=== PATIENT | male | born 1995 | race Caucasian/White ===

== ENCOUNTER → 2021-08-02 | Outpatient (CLI) | payer OTHER | END | disposition home or self-care (01) | LOC: COVID19 16:52 | PROVIDERS: ATTEND Internal Medicine | DX: Z11.52 Encounter for screening for COVID-19 (principal) ==

== ENCOUNTER 2023-02-18 10:51 | Emergency (ER) | payer SELFPAY ==
[~2023-02-18] VITALS: Ht 162.5 cm; Wt 63.5 kg
[2023-02-18] MEDS ORDERED: POLYMYXIN B/TRI10 M1 OPH (11:39)
== END 2023-02-18 11:47 | disposition home or self-care (01) ==
LOC: ED 10:51
DX: H10.9 Unspecified conjunctivitis (principal)

== ENCOUNTER 2023-02-21 13:47 | Emergency (ER) | payer SELFPAY ==
[~2023-02-21] VITALS: Ht 162.5 cm; Wt 61.2 kg
[~2023-02-21 13:47] MED LIST: POLYMYXIN B/TRI10 M1 OPH
[2023-02-21] MEDS ORDERED: AMOXICILLIN500 M2 PO (18:23)
== END 2023-02-21 14:55 | disposition home or self-care (01) ==
LOC: ED 13:47
DX: J02.9 Acute pharyngitis, unspecified (principal); Z88.2 Allergy status to sulfonamides

== ENCOUNTER 2023-04-06 15:14 | Emergency (ER) | payer SELFPAY ==
[~2023-04-06] VITALS: Ht 162.5 cm; Wt 54.4 kg
[~2023-04-06 15:14] MED LIST changes: +AMOXICILLIN500 M2 PO
[2023-04-06 15:53] LABS: BASO # 0.1 10*3/uL (0.0-0.1); BASO % 1.1 % (0.0-1.0); EOS # 0.3 10*3/uL (0.0-0.4); EOS % 4.7 % (1.0-4.0); HEMATOCRIT 44.4 % (42.0-52.0); LYMPH # 1.8 10*3/uL (1.3-4.4); LYMPH % 26.5 % (27.0-41.0); MEAN CELL VOLUME 87.1 fl (80.0-94.0); MEAN CORPUSCULAR HGB 29.6 pg (27.0-31.0); MEAN PLATELET VOLUME 11.2 fl (9.6-12.3); MONO # 0.5 10*3/uL (0.1-1.0); MONO % 6.9 % (3.0-9.0); NEUT % 60.5 % (47.0-73.0); PLATELET COUNT AUTOMATED 228 10*3/uL (130-400); RED CELL DISTRI WIDTH 12.5 % (0-14.5); WHITE BLOOD COUNT 6.6 10*3/uL (4.8-10.8)
[2023-04-06 16:16] LABS: ALKALINE PHOSPHATASE 69 U/L (46-116); BUN 13 mg/dl (9-23); CHLORIDE 105 mmol/L (98-107); LIPASE 44 U/L (12-53); POTASSIUM 4.4 mmol/L (3.4-5.1); SGPT/ALT 26 U/L (10-49); TOTAL PROTEIN 7.2 gm/dL (6.0-8.0)
== END 2023-04-06 17:30 | disposition home or self-care (01) ==
LOC: ED 15:14
PROVIDERS: Emergency Medicine
DX: E86.0 Dehydration (principal); R53.1 Weakness; R11.0 Nausea; Z88.2 Allergy status to sulfonamides

== ENCOUNTER 2023-05-18 06:30 | Emergency (ER) | payer OTHER, MEDICAID ==
[~2023-05-18] VITALS: Ht 162.5 cm; Wt 63.5 kg
[2023-05-18] MEDS ORDERED: NAPROXEN500 M1 PO (07:30)
== END 2023-05-18 07:38 | disposition home or self-care (01) ==
LOC: ED 06:30
DX: S39.012A Strain of muscle, fascia and tendon of lower back, initial encounter (principal); Z88.2 Allergy status to sulfonamides; Z87.891 Personal history of nicotine dependence; X58.XXXA Exposure to other specified factors, initial encounter; Y93.89 Activity, other specified; Y92.89 Other specified places as the place of occurrence of the external cause; Y99.8 Other external cause status

== ENCOUNTER 2023-11-19 20:52 | Emergency (ER) | payer OTHER, MEDICAID ==
[~2023-11-19] VITALS: Ht 162.5 cm; Wt 59.0 kg
[~2023-11-19 20:52] MED LIST changes: +NAPROXEN500 M1 PO
[2023-11-19] MEDS ORDERED: AMOX-CLAV 875-1 EACH PO (22:12)
== END 2023-11-19 22:33 | disposition home or self-care (01) ==
LOC: ED 20:52
DX: J02.9 Acute pharyngitis, unspecified (principal); R51.9 Headache, unspecified; Z88.2 Allergy status to sulfonamides; F17.210 Nicotine dependence, cigarettes, uncomplicated

== ENCOUNTER 2024-04-30 02:24 | Emergency (ER) | payer MEDICAID ==
[~2024-04-30] VITALS: Ht 172.7 cm; Wt 70.3 kg
[~2024-04-30 02:24] MED LIST changes: +AMOX-CLAV 875-1 EACH PO
[2024-04-30] MEDS ORDERED: HYDROCODONE-AC1 EAC1 PO (03:17)
== END 2024-04-30 03:36 | disposition home or self-care (01) ==
LOC: ED 02:24
DX: S62.306A Unspecified fracture of fifth metacarpal bone, right hand, initial encounter for closed fracture (principal); Z88.2 Allergy status to sulfonamides; W22.8XXA Striking against or struck by other objects, initial encounter; Y93.89 Activity, other specified; Y92.89 Other specified places as the place of occurrence of the external cause; Y99.8 Other external cause status

== ENCOUNTER → 2024-05-08 | Outpatient (CLI) | payer MEDICAID ==
[~2024-05-08] MED LIST changes: +HYDROCODONE-AC1 EAC1 PO
== END | disposition home or self-care (01) ==
LOC: ORTHO 02:17
PROVIDERS: ATTEND Orthopaedic Surgery
DX: S62.396D Other fracture of fifth metacarpal bone, right hand, subsequent encounter for fracture with routine healing (principal); X58.XXXD Exposure to other specified factors, subsequent encounter

== ENCOUNTER → 2024-05-13 | Outpatient (CLI) | payer MEDICAID | END | disposition home or self-care (01) | LOC: ORTHO 02:49 | PROVIDERS: ATTEND Orthopaedic Surgery | DX: S62.336D Displaced fracture of neck of fifth metacarpal bone, right hand, subsequent encounter for fracture with routine healing (principal); X58.XXXD Exposure to other specified factors, subsequent encounter ==

== ENCOUNTER → 2024-05-20 | Outpatient (CLI) | payer MEDICAID | END | disposition home or self-care (01) | LOC: ORTHO 01:08 | PROVIDERS: ATTEND Orthopaedic Surgery | DX: S62.331D Displaced fracture of neck of second metacarpal bone, left hand, subsequent encounter for fracture with routine healing (principal); X58.XXXD Exposure to other specified factors, subsequent encounter ==

== ENCOUNTER 2024-08-16 22:32 | Emergency (ER) | payer MEDICAID ==
[~2024-08-16] VITALS: Ht 162.5 cm; Wt 63.5 kg
[2024-08-17] MEDS ORDERED: VIBRAMYCIN100 MG PO (00:08)
[2024-08-17] MEDS ORDERED: CEPHALEXIN500 M1 PO (00:08)
[2024-08-17] MEDS ORDERED: Doxycycline Hyclate 100 MG CAP PO ONE (00:10)
== END 2024-08-17 00:22 | disposition home or self-care (01) ==
LOC: ED 22:32
DX: L02.411 Cutaneous abscess of right axilla (principal); F17.200 Nicotine dependence, unspecified, uncomplicated; Z88.2 Allergy status to sulfonamides

== ENCOUNTER 2024-09-10 17:40 | Emergency (ER) | payer SELFPAY ==
[~2024-09-10] VITALS: Ht 162.5 cm; Wt 63.5 kg
[~2024-09-10 17:40] MED LIST changes: +CEPHALEXIN500 M1 PO; +VIBRAMYCIN100 MG PO
[2024-09-10] MEDS ORDERED: Ketorolac Tromethamine 30 MG/ML VIAL IM ONE (17:55)
[2024-09-10] MEDS ORDERED: ZANAFLEX4 MG PO (19:10)
[2024-09-10] MEDS ORDERED: NAPROSYN500 MG PO (19:10)
[2024-09-10] MEDS ORDERED: Acetaminophen/Oxycodone 5 MG/325 MG TABLET PO ONE (19:10)
== END 2024-09-10 19:25 | disposition home or self-care (01) ==
LOC: ED 17:40
DX: S39.012A Strain of muscle, fascia and tendon of lower back, initial encounter (principal); S29.012A Strain of muscle and tendon of back wall of thorax, initial encounter; Z88.2 Allergy status to sulfonamides; X50.0XXA Overexertion from strenuous movement or load, initial encounter; Y93.89 Activity, other specified; Y92.89 Other specified places as the place of occurrence of the external cause; Y99.0 Civilian activity done for income or pay

== ENCOUNTER 2024-09-20 15:01 | Emergency (ER) | payer SELFPAY ==
[~2024-09-20] VITALS: Ht 162.5 cm; Wt 63.5 kg
[~2024-09-20 15:01] MED LIST changes: +NAPROSYN500 MG PO; +ZANAFLEX4 MG PO
[2024-09-20] MEDS ORDERED: MELOXICAM15 MG PO (15:24)
[2024-09-20] MEDS ORDERED: Acetaminophen/Oxycodone 5 MG/325 MG TABLET PO ONE (15:25)
== END 2024-09-20 16:43 | disposition home or self-care (01) ==
LOC: ED 15:01
DX: S09.8XXA Other specified injuries of head, initial encounter (principal); Z88.2 Allergy status to sulfonamides; W01.198A Fall on same level from slipping, tripping and stumbling with subsequent striking against other object, initial encounter; Y93.01 Activity, walking, marching and hiking; Y92.89 Other specified places as the place of occurrence of the external cause; Y99.0 Civilian activity done for income or pay

== ENCOUNTER 2024-10-20 19:10 | Emergency (ER) | payer SELFPAY ==
[~2024-10-20] VITALS: Ht 162.5 cm; Wt 68.0 kg
[~2024-10-20 19:10] MED LIST changes: +MELOXICAM15 MG PO
[2024-10-20 19:38] LABS: BASO % 0.7 % (0.0-1.0); EOS # 0.1 10*3/uL (0.0-0.4); HEMATOCRIT 44.5 % (42.0-52.0); MEAN CELL VOLUME 88.3 fl (80.0-94.0); MEAN CORPUSCULAR HGB CONC 33.9 g/dl (33.0-37.0); MEAN PLATELET VOLUME 11.5 fl (9.6-12.3); MONO # 0.5 10*3/uL (0.1-1.0); MONO % 7.8 % (3.0-9.0); NEUT % 67.3 % (47.0-73.0); PLATELET COUNT AUTOMATED 199 10*3/uL (130-400); RED BLOOD COUNT 5.04 10*6/uL (4.50-5.90); WHITE BLOOD COUNT 5.9 10*3/uL (4.8-10.8)
[2024-10-20 19:56] LABS: BUN < 5 mg/dl (9-23); CHLORIDE 109 mmol/L (98-107); POTASSIUM 3.7 mmol/L (3.4-5.1)
[2024-10-20] MEDS ORDERED: LORazepam 1 MG TAB PO ONE (20:25)
[2024-10-21] MEDS ORDERED: METHOCARBAMOL500 M1 PO (05:13)
[2024-10-21] MEDS ORDERED: NAPROXEN250 MG PO (05:13)
== END 2024-10-20 20:34 | disposition home or self-care (01) ==
LOC: ED 19:10
PROVIDERS: Nurse Practitioner Family
DX: F41.9 Anxiety disorder, unspecified (principal); R11.0 Nausea; Z88.2 Allergy status to sulfonamides

== ENCOUNTER 2024-10-21 02:11 | Emergency (ER) | payer OTHER ==
[~2024-10-21] VITALS: Ht 170.1 cm; Wt 68.0 kg
[2024-10-21 03:11] LABS: BASO % 0.7 % (0.0-1.0); EOS # 0.1 10*3/uL (0.0-0.4); EOS % 0.9 % (1.0-4.0); HEMATOCRIT 43.8 % (42.0-52.0); MEAN CELL VOLUME 88.7 fl (80.0-94.0); MEAN CORPUSCULAR HGB 30.2 pg (27.0-31.0); MEAN PLATELET VOLUME 11.4 fl (9.6-12.3); MONO # 0.5 10*3/uL (0.1-1.0); MONO % 9.8 % (3.0-9.0); NEUT # 3.4 10*3/uL (2.3-7.9); NEUT % 63.8 % (47.0-73.0); PLATELET COUNT AUTOMATED 210 10*3/uL (130-400); RED BLOOD COUNT 4.94 10*6/uL (4.50-5.90); RED CELL DISTRI WIDTH 12.1 % (0-14.5); WHITE BLOOD COUNT 5.4 10*3/uL (4.8-10.8)
[2024-10-21] MEDS ORDERED: NAPROXEN250 MG PO (05:13)
[2024-10-21] MEDS ORDERED: METHOCARBAMOL500 M1 PO (05:13)
== END 2024-10-21 05:20 | disposition home or self-care (01) ==
LOC: ED 02:11
PROVIDERS: Internal Medicine
DX: S00.93XA Contusion of unspecified part of head, initial encounter (principal); M54.6 Pain in thoracic spine; M54.2 Cervicalgia; R51.9 Headache, unspecified; Z88.2 Allergy status to sulfonamides; V03.99XA Pedestrian with other conveyance injured in collision with car, pick-up truck or van, unspecified whether traffic or nontraffic accident, initial encounter; Y93.89 Activity, other specified; Y92.410 Unspecified street and highway as the place of occurrence of the external cause; Y99.8 Other external cause status